=== PATIENT | female | born 1985 | race Caucasian/White ===

== ENCOUNTER 2017-10-11 14:54 | Emergency (ER) | payer BC, OTHER ==
--- NOTE | 2017-10-11 15:49 | UC ---
Complaint Female HPI - HPI Summary HPI Summary: Pt c/o of left lower back/upper buttock pain that is persistent and c/o left upper leg numbness and tingling that began today but has resolved since onset. Pt also reports sudden onset of nausea and vomiting that began today. Pt is on a low carbohydrate diet that she began 4 months ago. - History Of Current Complaint Chief Complaint: UCBackPain Stated Complaint: LOWER LT BACK PAIN,VOMITING Time Seen by Provider: 10/11/17 15:19 Hx Obtained From: Patient Hx Last Menstrual Period: 10/07/17 ?: No Onset/Duration: Sudden Onset - N/V began today, Gradual Onset - left lower back , leg pain began a few days ago, Still Present Timing: Constant - back and leg pain, Intermittent - nausea Severity Initially: Mild Severity Currently: Mild Character: Dull - back, Burning - back Aggravating Factor(s): Movement Alleviating Factor(s): Position Associated Signs And Symptoms: Positive: Back Pain - Risk Factors Ectopic Risk Factor: Negative Ovarian Torsion Risk Factor: Ovarian Cysts/Tumors - PCOS - Allergies/Home Medications Allergies/Adverse Reactions: Allergies Allergy/AdvReac Type Severity Reaction Status Date / Time Amoxicillin Allergy Hives Verified 10/11/17 15:26 Penicillins Allergy Hives Verified 10/11/17 15:26 Sulfa Antibiotics Allergy Hives Verified 10/11/17 15:26 Home Medications: Home Medications Ibuprofen TAB* [Advil TAB*] 600 mg PO Q6H PRN 10/11/17 [History Confirmed ] PMH/Surg Hx/FS Hx/Imm Hx Previously Healthy: Yes - Surgical History Surgical History: Yes Surgery Procedure, Year, and Place: SPINAL FUSION - Family History Known Family History: Positive: Cardiac Disease - Social History Occupation: Employed Full-time Lives: With Family Alcohol Use: Rare Substance Use Type: None Smoking Status (MU): Never Smoked Tobacco Have You Smoked in the Last Year: No Review of Systems Constitutional: Negative Skin: Negative Eyes: Negative ENT: Negative Respiratory: Negative Cardiovascular: Negative Gastrointestinal: Vomiting, Nausea Genitourinary: Negative Motor: Negative Musculoskeletal: Arthralgia - left lower back, upper buttock, Myalgia - left lower back, upper buttock Neurological: Numbness Psychological: Negative Is Patient Immunocompromised?: No All Other Systems Reviewed And Are Negative: Yes Physical Exam Triage Information Reviewed: Yes Appearance: Well-Appearing Vital Signs: Initial Vital Signs Temp 97.5 F 10/11/17 15:17 Pulse 92 10/11/17 15:17 Resp 16 10/11/17 15:17 BP 137/90 10/11/17 15:17 Pulse Ox 100 10/11/17 15:17 Vital Signs Reviewed: Yes Eye Exam: Normal ENT Exam: Normal Dental Exam: Normal Neck exam: Normal Respiratory Exam: Normal Cardiovascular Exam: Normal Abdominal Exam: Normal Abdomen Description: Positive: Nontender Bowel Sounds: Positive: Present Musculoskeletal Exam: Other Musculoskeletal: Positive: Other: - tenerness at upper left buttock, sciatic nerve Neurological Exam: Normal Psychological Exam: Normal Skin Exam: Normal Complaint Female Dx - Differential Dx/Diagnosis Differential Diagnosis/HQI/PQRI: Ovarian Cyst, Ovarian Torsion, Urinary Tract Infection, Other - kidney stone, pyelonephritis Provider Diagnoses: sciatica. nausea and vomiting possibly from low carb diet. UA: 4+ ketones, 2+ protein Discharge - Discharge Plan Condition: Stable Disposition: HOME Prescriptions: Ondansetron [Zofran 8 MG Odt] 8 mg PO Q8H PRN #15 tab PRN Reason: Nausea Patient Education Materials: Sciatica (ED), Acute Nausea and Vomiting (ED) Referrals: Amy PADILLA,Hawk Montaño [Medical Doctor] - If Needed Braulio PADILLA,Danette Montaño [Primary Care Provider] - If Needed
== END 2017-10-11 16:07 | disposition home or self-care (01) ==
LOC: UCCORT 14:54
DX: M54.30 Sciatica, unspecified side (principal); R11.2 Nausea with vomiting, unspecified; Z32.02 Encounter for pregnancy test, result negative; Z88.0 Allergy status to penicillin; Z88.1 Allergy status to other antibiotic agents; Z88.2 Allergy status to sulfonamides
CPT/HCPCS: 81003; 84702; 99202; G0463